=== PATIENT | male | born 1955 | race Hispanic/Latino ===

== ENCOUNTER 2022-12-23 05:54 | Day surgery (SDC) | payer MEDICARE ==
[2022-12-22 15:18] VITALS: BP 109/67; PULSE 77; RESP 19
[2022-12-22 15:33] LABS: BASOPHILS # (AUTO) 0.03 K/uL (0.00-0.20); BASOPHILS % (AUTO) 0.4 % (0.0-5.0); EOSINOPHILS # (AUTO) 0.14 K/uL (0.00-0.70); EOSINOPHILS % (AUTO) 1.8 % (0.0-8.0); IMMATURE GRANULOCYTE ABSOLUTE 0.04 K/uL (0-1); LYMPHOCYTES # (AUTO) 1.8 K/uL (1.0-4.8); LYMPHOCYTES % (AUTO) 23.8 % (21.0-51.0); MEAN CORPUSCULAR HEMOGLOBIN 30.5 pg (27.0-33.0); MEAN CORPUSCULAR HGB CONC 32.2 g/dL (32.0-36.0); MEAN CORPUSCULAR VOLUME 94.7 fL (79-99); MONOCYTES # (AUTO) 0.5 K/uL (0.1-1.0); MONOCYTES % (AUTO) 6.3 % (3.0-13.0); NEUTROPHILS # (AUTO) 5.1 K/uL (1.8-7.7); NEUTROPHILS % (AUTO) 67.2 % (40.0-77.0); PLATELET COUNT (AUTO) 196 K/uL (130-400); RED BLOOD CELL COUNT(AUTO) 4.86 MIL/uL (4.50-6.20); RED CELL DISTRIBUTION WIDTH 13.6 % (11.0-15.5); WHITE BLOOD COUNT (AUTO) 7.6 K/uL (4.8-10.8)
[2022-12-22 15:45] LABS: CREATININE 1.1 mg/dL (0.5-1.5); POTASSIUM 4.8 mmol/L (3.5-5.1); PROTHROMBIN TIME 11.6 SEC (9.6-11.6)
[2022-12-22 15:46] LABS: PARTIAL THROMBOPLASTIN TIME 28.8 SEC (26.3-35.5)
[2022-12-23] VITALS (8 sets, daily range): BP systolic 113–154; BP diastolic 68–81; PULSE 60–78; RESP 16–20
[~2022-12-23] VITALS: Ht 165.1 cm; Wt 78.9 kg
[~2022-12-23 05:54] MED LIST: AEC81 PO; ALPR0.5T8 PO; ATOR40TA71 PO; ISOS60TA77 PO; LISI10TA24 PO; METO-391 PO; PANT40TA54 PO; VERA120T92 PO
[2022-12-23] MEDS ORDERED: 0.9%NACL 1000ML 1,000 ML IV ONE (06:27)
[2022-12-23] MEDS ORDERED: LIDOCAINE HCL 1% MDV 50ML VIAL ONE (07:36)
[2022-12-23] MEDS ORDERED: MIDAZOLAM HCL 1 MG/ML 2ML VIAL ONE ×4 (07:36→09:37)
[2022-12-23] MEDS ORDERED: HEPARIN 10,000 UNIT/10ML (1,000 UNIT/ML) VIAL ONE (07:36)
[2022-12-23] MEDS ORDERED: MEPERIDINE-PF 25 MG/ML SYG ONE ×4 (07:36→09:38)
[2022-12-23] MEDS ORDERED: ADENOSINE 90MG VIAL IV ONE (08:27)
[2022-12-23] MEDS ORDERED: ISOPROTERENOL HCL 0.2 MG/ML AMP/VIAL/BAG ONE ×2 (08:29→08:47)
[2022-12-23] MEDS ORDERED: PROTAMINE SULFATE 10 MG/ML 25ML VIAL IV ONE (10:46)
[2022-12-23] MEDS ORDERED: ASPI-891 PO (11:23)
[2022-12-23] MEDS ORDERED: ALPRAZOLAM 0.5 MG TABLET PO PRN (11:30)
[2022-12-23] MEDS ORDERED: ASPIRIN 325MG EC TAB PO ONE (11:30)
[2022-12-23] MEDS ORDERED: ATORVASTATIN 40 MG TABLET PO SCH (21:00)
[2022-12-23] MEDS ORDERED: METOPROLOL SUCCINATE 50 MG TAB.SR.24H PO SCH (21:00)
[2022-12-24] MEDS ORDERED: ISOSORBIDE MONO 60MG SR TAB PO SCH (09:00)
[2022-12-24] MEDS ORDERED: LISINOPRIL 10 MG TABLET PO SCH (09:00)
[2022-12-24] MEDS ORDERED: PANTOPRAZOLE 40 MG TAB DR PO SCH (09:00)
[2022-12-24] MEDS ORDERED: ASPIRIN 325MG EC TAB PO SCH (09:00)
== END 2022-12-23 15:05 | disposition home or self-care (01) ==
LOC: DAH 05:54 → UNDOADMOB 05:55 → DAH 05:55 → DAHIP 05:55
PROVIDERS: ATTEND Internal Medicine Cardiovascular Disease
DX: I47.1 Supraventricular tachycardia (principal); I10 Essential (primary) hypertension; E78.5 Hyperlipidemia, unspecified; K21.9 Gastro-esophageal reflux disease without esophagitis; F41.9 Anxiety disorder, unspecified; I45.10 Unspecified right bundle-branch block; Z95.5 Presence of coronary angioplasty implant and graft; Z79.899 Other long term (current) drug therapy; Z79.01 Long term (current) use of anticoagulants
CPT/HCPCS: 80048; 85025; 85610; 85730; 36415; 93005; 93653; 93623; 93462; 93662; 85347; C1894 ×6; C1730 ×4; C1893; A4215 ×2; A4649 ×2; C1732; J7030; J3490 ×3; J1644 ×3; J2250 ×4; J2175 ×4; J0153; A4222; A4221; A4663; A4216; A4606; J2720; A4223 ×3; 99156; 99157